=== PATIENT | female | born 1995 | race Caucasian/White ===

== ENCOUNTER 2017-08-14 19:06 | Emergency (ER) | payer OTHER ==
[~2017-08-14] VITALS: Ht 162.6 cm; Wt 64.4 kg
--- NOTE | 2017-08-14 19:27 | NUR ---
PT AMBULATORY TO ER BED 8. PT BIB SELF C/O "FLU LIKE SYMPTOMS" X 3 DAYS. PT ON [employer]. VSS/RESP EVEN UNLABORED/NAD NOTED/SKIN WARM AND DRY/DENIES N-V-D/AOX4. AWAITING MD PEREZ.
--- NOTE | 2017-08-14 21:21 | NUR ---
URINE SPECIMEN OBTAINED AND SENT TO THE LAB.
[2017-08-14] MEDS ORDERED: ONDANSETRON 4 MG TAB.RAPDIS ONE (21:22)
[2017-08-14 21:25] LABS: APPEARANCE,URINE Clear (CLEAR); BILIRUBIN,URINE Negative (NEGATIVE); BLOOD, URINE Negative Ery/uL (NEGATIVE); COLOR,URINE Yellow (YELLOW); KETONES,URINE Negative (NEGATIVE); LEUKOCYTE ESTERASE ,URINE Negative (NEGATIVE); NITRITE, URINE Negative (NEGATIVE); PROTEIN,URINE Negative (NEGATIVE); UGLUCOSE Negative (NEGATIVE); UROBILINOGEN,URINE 0.2 EU/dL (0.2)
[2017-08-14] MEDS ORDERED: ONDANSETRON 4 MG TAB.RAPDIS SL ONE (21:30)
--- NOTE | 2017-08-14 22:00 | NUR ---
Patient discharged to home in stable condition. Written and verbal after care instructions given. Patient verbalizes understanding of instruction. Patient ambulatory with a steady gait.
[2017-08-14 22:01] VITALS: BP 105/54
== END 2017-08-14 22:01 | disposition home or self-care (01) ==
LOC: ER 19:09
DX: J11.1 Influenza due to unidentified influenza virus with other respiratory manifestations (principal); R11.0 Nausea
CPT/HCPCS: 81001; 84703; 99283; A4606; Q0162; Z7610; 81000-TC